=== PATIENT | male | born 1965 | race Hispanic/Latino ===

== ENCOUNTER 2018-01-28 07:30 | Emergency (ER) | payer BC ==
[2018-01-28 07:34] VITALS: BMI 23.0
[2018-01-28] MEDS ORDERED: Oxycodone/Acetaminophen 5/325 mg Tab PO ONE (08:14)
--- NOTE | 2018-01-28 09:53 | ED PDOC ---
HPI: Back Time Seen by Provider: 01/28/18 08:03 Chief Complaint (Nursing): Back Pain Chief Complaint (Provider): Lower Back Pain History Per: Patient History/Exam Limitations: no limitations Current Symptoms Are (Timing): Still Present Quality Of Discomfort: "Pain" Additional Complaint(s): 52 year old male with no significant past medical history presents to the ED for lower positional back pain onset 4 days ago. He reports he played golf last week and felt some pain the next day, the pain has been getting worse since. Patient claims he felt a spasm and tightness with no radiation. He went to his PMD who prescribed him Flexeril and NSAID that have not improved his symptoms. Patient states that increased pain this morning prompted ED visit. He denies any other injuries, weakness, numbness, abdominal pain, dysuria, or any other medical complaints. PMD: [facility] Past Medical History Reviewed: Historical Data, Nursing Documentation, Vital Signs Vital Signs: Last Vital Signs Temp 97.6 F 01/28/18 07:34 Pulse 83 01/28/18 07:34 Resp 17 01/28/18 07:34 BP 120/84 01/28/18 07:34 Pulse Ox 98 01/28/18 07:34 - Medical History PMH: No Chronic Diseases - Surgical History Surgical History: No Surg Hx - Family History Family History: States: Unknown Family Hx - Social History Current smoker - smoking cessation education provided: No Ex-Smoker (has not smoked in the last 12 months): No Alcohol: Social Drugs: Denies - Home Medications Home Medications: Ambulatory Orders Medication Instructions Recorded Naproxen 500 mg PO BID #20 tab 01/28/18 diaZEpam [Valium] 5 mg PO TID PRN #10 tab 01/28/18 - Allergies Allergies/Adverse Reactions: Allergies Allergy/AdvReac Type Severity Reaction Status Date / Time No Known Allergies Allergy Verified 01/28/18 07:42 Review of Systems ROS Statement: Except As Marked, All Systems Reviewed And Found Negative Gastrointestinal: Negative for: Abdominal Pain Genitourinary Male: Negative for: Dysuria, Frequency, Incontinence, Hematuria Musculoskeletal: Positive for: Back Pain (lower) Neurological: Negative for: Weakness, Numbness Physical Exam - Reviewed Nursing Documentation Reviewed: Yes Vital Signs Reviewed: Yes - Physical Exam Appears: Positive for: Non-toxic, Uncomfortable (when moving head) Head Exam: Positive for: ATRAUMATIC, NORMOCEPHALIC Skin: Positive for: Normal Color, Warm, Dry Eye Exam: Positive for: Normal appearance, EOMI, PERRL Neck: Positive for: Normal, Painless ROM, Supple Cardiovascular/Chest: Positive for: Regular Rate, Rhythm. Negative for: Murmur Respiratory: Positive for: Normal Breath Sounds. Negative for: Respiratory Distress Gastrointestinal/Abdominal: Positive for: Soft. Negative for: Tenderness Back: Positive for: Muscle Spasm (present), Other (no pain) Extremity: Positive for: Normal ROM (upper and lower extremities). Negative for : Pedal Edema, Deformity Neurologic/Psych: Positive for: Alert, Oriented (x3), Gait (steady) - ECG O2 Sat by Pulse Oximetry: 98 (RA) Pulse Ox Interpretation: Normal Medical Decision Making Medical Decision Making: Time: 8:14 Initial Impression: Lower back pain diffuse musculoskeletal pain, muscle spasm, less likely lumbar radicular neuropathy Intial Plan: --Percocet 1 tab --Toradol 30 mg IM --Valium 5 mg PO Time: 9:14 --Patient reassessed and upon reevaluation patient felt better and pain subsided. Patient is medically stable for discharge. Scribe Attestation: Documented by Heaven Hammonds, acting as a scribe for Nicolasa Mcgrath MD Provider Scribe Attestation: All medical record entries made by the Scribe were at my direction and personally dictated by me. I have reviewed the chart and agree that the record accurately reflects my personal performance of the history, physical exam, medical decision making, and the department course for this patient. I have also personally directed, reviewed, and agree with the discharge instructions and disposition. Disposition - Clinical Impression Clinical Impression: Back pain - Patient ED Disposition Is Patient to be Admitted: No Doctor Will See Patient In The: Office Counseled Patient/Family Regarding: Studies Performed, Diagnosis, Need For Followup - Disposition Referrals: Constantino Reyna MD [Staff Provider] - Disposition: Routine/Home Disposition Time: 09:15 Condition: GOOD Additional Instructions: Take your medications as instructed. Follow up with your PCP in 2-3 days. Prescriptions: diaZEpam [Valium] 5 mg PO TID PRN #10 tab PRN Reason: Pain, Severe (8-10) Naproxen 500 mg PO BID #20 tab Instructions: Low Back Pain in Adults
[2018-01-28 10:01] VITALS: BP 116/73; PULSE 88; RESP 18; TEMP 97.9
[2018-01-28 10:56] VITALS: O2SAT 98
== END 2018-01-28 10:00 | disposition home or self-care (01) ==
LOC: H.ER 07:30
DX: M54.5 Low back pain (principal)
CPT/HCPCS: 96372; 99283; J1885